=== PATIENT | male | born 1955 | race Caucasian/White ===

== ENCOUNTER 2018-10-23 09:58 | Inpatient (IN) | payer OTHER ==
[~2018-10-23] VITALS: Ht 188 cm; Wt 93.9 kg
[2018-10-23] VITALS (8 sets, daily range): BP systolic 97–132; BP diastolic 64–83
[2018-10-23 10:26] LABS: HEMATOCRIT 52.2 % (42.0-52.0); HEMOGLOBIN 17.9 gm/dL (14.0-18.0); MCH 32.6 pg (26.0-34.0); MCHC 34.3 g/dL (28.0-37.0); MCV 95.1 fL (80.0-100.0); MPV 9.3 fl. (7.2-11.1); NUCLEATED RBCS 0 /100WBC; PLATELET COUNT* 198 thou/uL (150-400); RBC 5.49 mil/uL (4.50-6.00); WBC 12.7 thou/uL (4.0-11.0)
[2018-10-23] MEDS ORDERED: ASPIR 8181 MG PO (10:27)
[2018-10-23] MEDS ORDERED: CENTRUM SILVER1 EAC2 PO (10:27)
[2018-10-23 10:52] LABS: ANION GAP 4 mmol/L (7-16); BUN 15 mg/dL (7-18); CALCIUM 9.2 mg/dL (8.5-10.1); CHLORIDE 101 mmol/L (98-107); CO2 32 mmol/L (21-32); CREATININE 1.1 mg/dL (0.6-1.3); GLUCOSE 114 mg/dL (70-99); POTASSIUM 4.7 mmol/L (3.5-5.1); SODIUM 137 mmol/L (136-145)
[2018-10-23 11:03] LABS: ALBUMIN 3.6 g/dL (3.4-5.0); ALKALINE PHOSPHATASE 66 U/L (46-116); NT-PRO BRAIN NAT PEPTIDE 146 pg/mL (<300); SGOT 27 U/L (15-37); SGPT 38 U/L (30-65); TOTAL BILIRUBIN 1.2 mg/dL (<0.1-1.0); TOTAL PROTEIN 7.7 g/dL (6.4-8.2); TROPONIN-I LEVEL <0.06 ng/mL (<0.06)
[2018-10-23 11:06] LABS: ABSOLUTE BASOPHILS 0.1 thou/uL (0.0-0.2); ABSOLUTE EOSINOPHILS 0.4 thou/uL (0.0-0.7); ABSOLUTE LYMPHOCYTES 1.1 thou/uL (0.8-5.3); ABSOLUTE MONOCYTES 1.4 thou/uL (0.0-1.2); ABSOLUTE NEUTROPHILS 9.7 thou/uL (1.6-8.1); PLATELET ESTIMATE ADEQUATE
[2018-10-24] VITALS (9 sets, daily range): BP systolic 111–141; BP diastolic 56–82
[2018-10-24 11:02] LABS: ALBUMIN 3.1 g/dL (3.4-5.0); CALCIUM 8.9 mg/dL (8.5-10.1); CREATININE 1.1 mg/dL (0.6-1.3); POTASSIUM 4.2 mmol/L (3.5-5.1); TOTAL BILIRUBIN 0.8 mg/dL (<0.1-1.0); TOTAL PROTEIN 6.9 g/dL (6.4-8.2)
--- NOTE | 2018-10-24 12:43 | EKG ---
[place] [address] ELECTROCARDIOGRAM REPORT Name: JULIENNE MCDONOUGH Room: [address] ADM IN M.R.#: [id number] Admission: 10/23/18 Attend Phys: Coleman Orosco, Discharge: Date of : 53 Report #: [id number] THIS REPORT FOR: //name// [facility] ED Test Date: 2018-10-23 Test Time: 10:16:24 Pat Name: JULIENNE MCDONOUGH Department: Room: [facility] Gender: M Extractions Technologist: David BARRAGAN : 1955 Requested By: Isaac Nunes Order Number: [id number] MD: Franko Gustafson Measurements Intervals [place] Rate: 155 P: NM: QRS: 43 QRSD: 89 T: 21 QT: 300 QTc: 482 Interpretive Statements Atrial fibrillation Borderline prolonged QT interval No previous ECG available for comparison Electronically Signed On 10-24-2018 12:42:47 BUSINESS CONTINUITY SPECIALIST by Franko Gustafson [email or web address] <ELECTRONICALLY SIGNED> By: Franko Gustafson MD, [facility] 10/24/18 1242 [id number] 15 Franko Gustafson MD, FACC /EPI
[2018-10-24 13:51] LABS: AMP/METHAMP Negative (Negative); BARBITURATES Negative (Negative); BENZODIAZEPINES Negative (Negative); COCAINE Negative (Negative); METHADONE Negative (Negative); OPIATES Negative (Negative); PCP Negative (Negative); THC Negative (Negative)
--- NOTE | 2018-10-24 16:50 | 2DMMODE ---
[place] [address] 2 D/M-MODE ECHOCARDIOGRAM Name: JULIENNE MCDONOUGH Room: [address] ADM IN M.R.#: [id number] Admission: 10/23/18 Attend Phys: Coleman Lopez Discharge: Date of : 53 Date of Service: 10/24/18 1650 Report #: [id number] THIS REPORT FOR: //name// APPROVED REPORT Study performed: 10/24/2018 10:00:35 EXAM: Comprehensive 2D, Doppler, and color-flow Echocardiogram Patient Location: Bedside BSA: 2.21 HR: 86 bpm BP: 117/76 mmHg Other Information Study Quality: Good Indications Atrial Fibrillation 2D Dimensions IVSd: 12.87 (7-11mm) LVOT Diam: 22.21 (18-24mm) LVDd: 41.82 mm PWd: 10.51 (7-11mm) Ascending Ao: 43.66 (22-36mm) LVDs: 28.86 (25-40mm) Aortic Root: 37.65 mm Volumes Left Atrial Volume (Systole) LA ESV Index: 28.70 mL/m2 Aortic Valve AoV Peak Giorgio.: 1.37 m/s AO Peak Gr.: 7.55 mmHg LVOT Max P.90 mmHg AO Mean Gr.: 4.48 mmHg LVOT Mean P.55 mmHg LVOT Max V: 1.11 m/s AO V2 VTI: 27.04 cm LVOT Mean V: 0.74 m/s IMAN (VTI): 3.63 cm2 LVOT V1 VTI: 25.36 cm Mitral Valve E/A Ratio: 1.60 MV Decel. Time: 221.70 ms MV E Max Giorgio.: 0.84 m/s MV PHT: 64.29 ms MVA (PHT): 3.42 [place]2 [place] [address] 2 D/M-MODE ECHOCARDIOGRAM Name: JULIENNE MCDONOUGH Room: [address] IN .R.#: [id number] Admission: 10/23/18 Attend Phys: Coleman Lopez Discharge: Date of : 53 Date of Service: 10/24/18 1650 Report #: [id number] TDI E/Lateral E': 5.60 E/Medial E': 6.46 Medial E' Giorgio.: 0.13 m/s Lateral E' Giorgio.: 0.15 m/s Pulmonary Valve PV Peak Giorgio.: 1.01 m/s PV Peak Gr.: 4.06 mmHg Left Ventricle The left ventricle is normal size. There is normal LV segmental wall motion. Mild concentric left ventricular hypertrophy. Left ventricular systolic function is normal. The left ventricular ejection fraction is within the normal range. LVEF is 60-65%. The left ventricular diastolic function is normal. Right Ventricle The right ventricle is normal size. The right ventricular systolic function is normal. Atria The left atrium size is normal. The right atrium size is normal. Aortic Valve Mild aortic valve sclerosis. No aortic regurgitation is present. There is no aortic valvular stenosis. Mitral Valve The mitral valve is normal in structure. Trace mitral regurgitation. No evidence of mitral valve stenosis. Tricuspid Valve The tricuspid valve is normal in structure. There is no tricuspid valve regurgitation noted. Pulmonic Valve The pulmonary valve is normal in structure. There is no pulmonic valvular regurgitation. Great Vessels The aortic root is normal in size. IVC is normal in size and collapses >50% with inspiration. Pericardium There is no [place] [address] 2 D/M-MODE ECHOCARDIOGRAM Name: JULIENNE MCDONOUGH Room: [address] IN [facility].#: [id number] Admission: 10/23/18 Attend Phys: Coleman Lopez Discharge: Date of : 53 Date of Service: 10/24/18 1650 Report #: [id number] <Conclusion> The left ventricle is normal size. Mild concentric left ventricular hypertrophy. Left ventricular systolic function is normal. The left ventricular ejection fraction is within the normal range. LVEF is 60-65%. The left ventricular diastolic function is normal. The right ventricle is normal size. The left atrium size is normal. Mild aortic valve sclerosis. No aortic regurgitation is present. There is no aortic valvular stenosis. The mitral valve is normal in structure. Trace mitral regurgitation. The tricuspid valve is normal in structure. The aortic root is normal in size. IVC is normal in size and collapses >50% with inspiration. There is no pericardial effusion. There is normal LV segmental wall motion. <ELECTRONICALLY SIGNED> By: Jaron Díaz MD, FACC 10/24/181649 49 49 Jaron Díaz MD, FACC /INF
[2018-10-25 00:44] VITALS: BP 121/67
[2018-10-25 03:15] VITALS: BP 111/64
[2018-10-25 05:40] LABS: CALCIUM 9.1 mg/dL (8.5-10.1); CREATININE 1.1 mg/dL (0.6-1.3); MAGNESIUM 2.2 mg/dL (1.8-2.4); PHOSPHORUS* 3.6 mg/dL (2.5-4.9)
[2018-10-25 08:00] VITALS: BP 125/75
[2018-10-25] MEDS ORDERED: CARDIZEM CD240 MG PO (09:13)
[2018-10-25] MEDS ORDERED: CEFDINIR300 MG PO (09:13)
[2018-10-25] MEDS ORDERED: FLECAINIDE ACET50 M1 PO (09:13)
[2018-10-25] MEDS ORDERED: PREDNISONE 10 M10 M1 PO (09:13)
[2018-10-25] MEDS ORDERED: ZITHROMAX250 MG PO (09:13)
[2018-10-25] MEDS ORDERED: ASPIRIN325 PO (09:14)
--- NOTE | 2018-10-25 09:48 | CON ---
[address] [address] CONSULTATION Name: JULIENNE MCDONOUGH Room: [address] IN M.R.#: [id number] Admission: 10/23/18 Attend Phys: Coleman Orosco, Discharge: Date of : 53 Report #: [id number] THIS REPORT FOR: //name// CC: JAMI physician/PCP Coleman Orosco DATE OF SERVICE: 10/24/2018 HISTORY OF PRESENT ILLNESS: The patient is a very pleasant 63-year-old male who went to urgent care yesterday because of persistent cough and upper respiratory infection. He was noted to have atrial fibrillation with a rapid response and was brought to the Emergency Room in that setting. He denied awareness of rapid or irregular pulse and there is no history of documented supraventricular or ventricular arrhythmias. The patient is active and walks at a vigorous pace on a regular basis without provocation of chest discomfort, dyspnea or palpitations. He denies major risk factors for coronary disease including cigarette smoking, hypercholesterolemia, diabetes, hypertension, premature coronary disease or renal disease. PAST MEDICAL HISTORY: Remarkable for minor arthritic complaints. SOCIAL HISTORY: The patient is single. He drinks a modest amount of alcohol, but does not smoke. He is on no chronic medications. REVIEW OF SYSTEMS: Remarkable for the following: RESPIRATORY: He noted cough for the last several days with some chest discomfort associated with the coughing. Remainder is unremarkable. MEDICATIONS: Include only aspirin and multivitamin. He received IV Cardizem and subsequently reverted to sinus rhythm. PHYSICAL EXAMINATION: GENERAL: Reveals undistressed, fit appearing middle-aged male. VITAL SIGNS: Blood pressure 130/70, pulse rate is 75, respirations are 18 per minute. NECK: Jugular venous pressure is normal. Carotids are 1-2+. CHEST: Clear. CARDIAC: Reveals normal first and second heart sounds without rubs, murmurs, clicks or gallops. ABDOMEN: Soft. EXTREMITIES: Without edema with intact femoral, pedal and [place] [address] CONSULTATION Name: JULIENNE MCDONOUGH Room: [address] IN [facility].#: [id number] Admission: 10/23/18 Attend Phys: Coleman Orosco, Discharge: Date of : 53 Report #: [id number] EKG on admission revealed atrial fibrillation with rapid ventricular response of 155. Current rhythm strips demonstrate sinus rhythm at a rate of 75. IMPRESSION: 1. Initial paroxysm of atrial fibrillation. 2. Recent upper respiratory infection. RECOMMENDATIONS: 1. Continue aspirin. 2. Would substitute oral Cardizem in the form of diltiazem extended release 240 mg daily. 3. Follow up in our office. 4. We will review echocardiogram regarding presence or absence of associated structural heart disease. <ELECTRONICALLY SIGNED> By: Jaron Díaz MD, [facility] 10/25/18 0948 1204 0923John Carlo Díaz MD, [facility] /nt
[2018-10-25 11:30] VITALS: BP 129/75
[2018-10-25 11:43] VITALS: BP 118/70
--- NOTE | 2018-10-26 13:46 | EKG ---
[place] [address] ELECTROCARDIOGRAM REPORT Name: JULIENNE MCDONOUGH Room: [address] DIS IN M.R.#: [id number] Admission: 10/23/18 Attend Phys: Coleman Orosco, Discharge: 10/25/18 Date of : 53 Report #: [id number] THIS REPORT FOR: //name// [facility] Test Date: 2018-10-25 Test Time: 08:32:30 Pat Name: JULIENNE MCDONOUGH Department: Room: [address] Gender: M Aerotriangulation Specialist: : 1955 Requested By: Jaron Díaz Order Number: [id number] Rosario MD: Julienne Parra Measurements Intervals [place] Rate: 73 P: 59 MD: 188 QRS: 45 QRSD: 110 T: 22 QT: 392 QTc: 432 Interpretive Statements Sinus rhythm Abnormal inferior Q waves Compared to ECG 10/23/2018 10:16:24 Inferior Q waves now present Atrial fibrillation no longer present Electronically Signed On 10-26-2018 13:46:49 DENTAL PRACTITIONER by Julienne Parra [email or web address] <ELECTRONICALLY SIGNED> By: Julienne Parra MD, [facility] 10/26/18 1346 0832 0832 Julienne Parra MD, [facility] /EPI
== END 2018-10-25 14:02 | disposition home or self-care (01) | DRG 871 ==
LOC: M.ERS 09:58 → M.2W 11:09 → M.TBA-ER 11:09 → M.2W 12:17
PROVIDERS: Emergency Medicine Emergency Medical Services; Internal Medicine; ADMIT Family Medicine
DX: A41.9 Sepsis, unspecified organism (principal); J18.9 Pneumonia, unspecified organism; I48.0 Paroxysmal atrial fibrillation; J20.8 Acute bronchitis due to other specified organisms; Z79.82 Long term (current) use of aspirin; Z79.899 Other long term (current) drug therapy; Z72.89 Other problems related to lifestyle